=== PATIENT | female | born 1950 | race Caucasian/White ===

== ENCOUNTER 2017-02-27 08:19 | Inpatient (IN) | payer OTHER ==
[~2017-02-27] VITALS: Ht 180.3 cm; Wt 109.8 kg
[~2017-02-27 08:19] MED LIST: ACET325; ACYC800 PO; ALBU.083IS; ALBU90OI; ALBU90OI INH; ALBUIS; AMOX1XR; ASPI325; ATOR40TA PO; Adult Low Dose81 MG PO; CELEXA PO; CEPH500 PO; CETI10; CIPR500 PO; CITA20 PO; DILT180; DIPH25; DOCU100; DOXY100; DOXY100 PO; DULERA 100 MCG/13 GM INH; DULO30; ESCI10; FLUSAL2505; FLUSAL2505 INH; GABA100 PO; ISODIN20 PO; LACT10SY; LANS30EC; LANS30EC PO; METH10; METH10 PO; METHADONE PO; NEBI5 PO; NICO21TP; NITR.4SL SL; OMEP20ER; OXYC15ER PO; OXYC5; Omeprazole20 M1 PO; PENVK500 PO; SERT50; SPIRIVA INHALER; THEO200ERC PO; TIOT18; TIOT18 INH; Valium5 MG PO
[2017-02-27] MEDS ORDERED: ISOMON20 PO (08:51)
[2017-02-27 09:12] LABS: BASOPHILS ABSOLUTE AUTO 0.03 K/mm3 (0.00-0.23); BASOPHILS PERCENT AUTO 0 % (0-2); EOSINOPHILS ABSOLUTE AUTO 0.08 K/mm3 (0.00-0.68); EOSINOPHILS PERCENT AUTO 1 % (0-6); Hematocrit 39.7 % (33.0-51.0); Hemoglobin 12.4 g/dL (11.5-16.0); IMMATURE GRAN ABSOLUTE AUTO 0.04 K/mm3 (0.00-0.10); IMMATURE GRAN PERCENT AUTO 0 % (0-1); LYMPHOCYTES ABSOLUTE AUTO 0.58 K/mm3 (0.84-5.20); LYMPHOCYTES PERCENT AUTO 6 % (21-46); MONOCYTES ABSOLUTE AUTO 0.66 K/mm3 (0.16-1.47); MONOCYTES PERCENT AUTO 7 % (4-13); Mean Corpuscular HGB 28.8 pg (26.0-34.0); Mean Corpuscular HGB Conc 31.2 g/dL (31.5-36.5); Mean Corpuscular Volume 92 fL (80-100); Mean Platelet Volume 9.1 fL (9.1-12.4); NEUTROPHILS ABSOLUTE AUTO 8.42 K/mm3 (1.96-9.15); NEUTROPHILS PERCENT AUTO 86 % (41-73); Platelet Count 256 K/mm3 (150-400); RDW Coefficient Variation 12.5 % (11.7-14.2); RDW Standard Deviation 42.3 fL (35.1-46.3); Red Blood Cell Count 4.31 M/mm3 (3.80-5.20); White Blood Cell Count 9.81 K/mm3 (4.00-11.30)
[2017-02-27 09:31] LABS: Influenza A Positive (NEGATIVE); Influenza B Negative (NEGATIVE)
[2017-02-27 09:33] LABS: Troponin I <0.015 ng/mL (0.000-0.040)
[2017-02-27 09:34] LABS: Alanine Aminotransfer (ALT/SGP 19 U/L (12-78); Albumin/Globulin Ratio 0.7 (0.8-1.8); Alk Phos 105 U/L (50-136); Anion Gap 5 mmol/L (6-16); Aspartate Aminotrans (AST/SGOT 10 U/L (12-37); Bilirubin, Total 0.3 mg/dL (0.1-1.0); Blood Urea Nitrogen 13 mg/dL (8-24); Bun/Creatinine Ratio 17.5 (12.0-20.0); CO2, Blood 31 mmol/L (21-32); Chloride, Blood 103 mmol/L (98-108); Creatinine, Blood 0.74 mg/dL (0.40-1.00); Globulin, Blood 4.4 g/dL (2.2-4.0); Glomerular Filtration Rate >60 (60-); Glucose, Blood 111 mg/dL (70-99); Sodium, Blood 139 mmol/L (136-145); Total Protein, Blood 7.4 g/dL (6.4-8.2)
[2017-02-28 06:00] LABS: Anion Gap 7 mmol/L (6-16); Blood Urea Nitrogen 14 mg/dL (8-24); Bun/Creatinine Ratio 21.9 (12.0-20.0); CO2, Blood 28 mmol/L (21-32); Calcium, Blood 8.6 mg/dL (8.5-10.1); Chloride, Blood 106 mmol/L (98-108); Creatinine, Blood 0.64 mg/dL (0.40-1.00); Glomerular Filtration Rate >60 (60-); Glucose, Blood 146 mg/dL (70-99); Potassium, Blood 3.8 mmol/L (3.5-5.5); Sodium, Blood 141 mmol/L (136-145); Theophylline 9.9 ug/mL (10.0-20.0)
[2017-02-28 06:22] LABS: BASOPHILS PERCENT AUTO 0 % (0-2); EOSINOPHILS PERCENT AUTO 0 % (0-6); Hemoglobin 11.5 g/dL (11.5-16.0); IMMATURE GRAN ABSOLUTE AUTO 0.05 K/mm3 (0.00-0.10); IMMATURE GRAN PERCENT AUTO 1 % (0-1); LYMPHOCYTES ABSOLUTE AUTO 0.48 K/mm3 (0.84-5.20); LYMPHOCYTES PERCENT AUTO 11 % (21-46); MONOCYTES ABSOLUTE AUTO 0.17 K/mm3 (0.16-1.47); MONOCYTES PERCENT AUTO 4 % (4-13); Mean Corpuscular HGB 28.9 pg (26.0-34.0); Mean Corpuscular HGB Conc 31.9 g/dL (31.5-36.5); Mean Corpuscular Volume 91 fL (80-100); Mean Platelet Volume 9.2 fL (9.1-12.4); NEUTROPHILS ABSOLUTE AUTO 3.88 K/mm3 (1.96-9.15); NEUTROPHILS PERCENT AUTO 85 % (41-73); Platelet Count 240 K/mm3 (150-400); RDW Coefficient Variation 12.3 % (11.7-14.2); RDW Standard Deviation 40.5 fL (35.1-46.3); Red Blood Cell Count 3.98 M/mm3 (3.80-5.20); White Blood Cell Count 4.58 K/mm3 (4.00-11.30)
[2017-03-01] MEDS ORDERED: BENZ100A PO (11:10)
[2017-03-01] MEDS ORDERED: CEFU500T30 PO (11:11)
[2017-03-01] MEDS ORDERED: OSEL75CA PO (11:11)
[2017-03-01] MEDS ORDERED: DELTASONE20 MG PO (11:15)
== END 2017-03-01 12:45 | disposition home or self-care (01) | DRG 193 ==
LOC: ER 08:19 → MEDS 10:38 → ENPENDDIS 03-01 09:09 → MEDS 03-01 12:45
PROVIDERS: Emergency Medicine; Internal Medicine
DX: J10.1 Influenza due to other identified influenza virus with other respiratory manifestations (principal); J96.01 Acute respiratory failure with hypoxia; J44.1 Chronic obstructive pulmonary disease with (acute) exacerbation; I20.9 Angina pectoris, unspecified; G89.4 Chronic pain syndrome; I87.8 Other specified disorders of veins; Z85.41 Personal history of malignant neoplasm of cervix uteri; Z85.43 Personal history of malignant neoplasm of ovary; Z85.118 Personal history of other malignant neoplasm of bronchus and lung; Z90.2 Acquired absence of lung [part of]; Z88.2 Allergy status to sulfonamides; Z87.891 Personal history of nicotine dependence; Z79.82 Long term (current) use of aspirin; Z79.899 Other long term (current) drug therapy; Z79.891 Long term (current) use of opiate analgesic; Z99.81 Dependence on supplemental oxygen
CPT/HCPCS: 36415; 71046; 80048; 80053; 80198; 83605; 84145; 84484; 85025; 87040; 87070; 87205; 87804; 93005; 93010; 94640; 94760; 96361; 96374; 99285; J1650; J2543; J2930; J7030

== ENCOUNTER 2017-04-30 14:16 | Emergency (ER) | payer OTHER ==
[~2017-04-30] VITALS: Ht 182.9 cm; Wt 110.7 kg
[~2017-04-30 14:16] MED LIST changes: +BENZ100A PO; +CEFU500T30 PO; +DELTASONE20 MG PO; +ISOMON20 PO; +OSEL75CA PO
[2017-04-30 14:46] LABS: BASOPHILS ABSOLUTE AUTO 0.03 K/mm3 (0.00-0.23); BASOPHILS PERCENT AUTO 0 % (0-2); EOSINOPHILS PERCENT AUTO 0 % (0-6); Hemoglobin 13.1 g/dL (11.5-16.0); IMMATURE GRAN PERCENT AUTO 1 % (0-1); LYMPHOCYTES ABSOLUTE AUTO 0.86 K/mm3 (0.84-5.20); LYMPHOCYTES PERCENT AUTO 9 % (21-46); MONOCYTES ABSOLUTE AUTO 0.27 K/mm3 (0.16-1.47); MONOCYTES PERCENT AUTO 3 % (4-13); Mean Corpuscular HGB 29.1 pg (26.0-34.0); Mean Corpuscular HGB Conc 31.2 g/dL (31.5-36.5); Mean Corpuscular Volume 93 fL (80-100); Mean Platelet Volume 9.1 fL (9.1-12.4); NEUTROPHILS ABSOLUTE AUTO 8.34 K/mm3 (1.96-9.15); NEUTROPHILS PERCENT AUTO 87 % (41-73); Platelet Count 251 K/mm3 (150-400); RDW Coefficient Variation 13.4 % (11.7-14.2); RDW Standard Deviation 45.9 fL (35.1-46.3)
[2017-04-30 15:08] LABS: Alanine Aminotransfer (ALT/SGP 23 U/L (12-78); Albumin/Globulin Ratio 0.8 (0.8-1.8); Alk Phos 78 U/L (50-136); Anion Gap 6 mmol/L (6-16); Aspartate Aminotrans (AST/SGOT 9 U/L (12-37); Bilirubin, Total 0.4 mg/dL (0.1-1.0); Blood Urea Nitrogen 19 mg/dL (8-24); Bun/Creatinine Ratio 27.4 (12.0-20.0); CO2, Blood 28 mmol/L (21-32); Calcium, Blood 8.9 mg/dL (8.5-10.1); Chloride, Blood 102 mmol/L (98-108); Creatinine, Blood 0.69 mg/dL (0.40-1.00); Glomerular Filtration Rate >60 (60-); Glucose, Blood 224 mg/dL (70-99); Potassium, Blood 4.1 mmol/L (3.5-5.5); Sodium, Blood 136 mmol/L (136-145); Troponin I <0.015 ng/mL (0.000-0.040)
== END 2017-04-30 17:03 | disposition home or self-care (01) ==
LOC: ER 14:16
PROVIDERS: Emergency Medicine
DX: R07.9 Chest pain, unspecified (principal); J44.9 Chronic obstructive pulmonary disease, unspecified; Z88.2 Allergy status to sulfonamides; Z88.1 Allergy status to other antibiotic agents; Z79.899 Other long term (current) drug therapy; Z79.51 Long term (current) use of inhaled steroids; Z79.82 Long term (current) use of aspirin; Z79.52 Long term (current) use of systemic steroids; Z87.891 Personal history of nicotine dependence
CPT/HCPCS: 36415; 71046; 80053; 84484; 85025; 93005; 93010; 99283

== ENCOUNTER 2017-09-19 09:16 | Emergency (ER) | payer OTHER ==
[~2017-09-19] VITALS: Ht 180.3 cm; Wt 112.5 kg
[2017-09-19 10:10] LABS: BASOPHILS ABSOLUTE AUTO 0.08 K/mm3 (0.00-0.23); BASOPHILS PERCENT AUTO 1 % (0-2); EOSINOPHILS ABSOLUTE AUTO 0.25 K/mm3 (0.00-0.68); EOSINOPHILS PERCENT AUTO 3 % (0-6); Hematocrit 37.9 % (33.0-51.0); IMMATURE GRAN ABSOLUTE AUTO 0.03 K/mm3 (0.00-0.10); IMMATURE GRAN PERCENT AUTO 0 % (0-1); LYMPHOCYTES ABSOLUTE AUTO 2.34 K/mm3 (0.84-5.20); LYMPHOCYTES PERCENT AUTO 26 % (21-46); MONOCYTES ABSOLUTE AUTO 0.94 K/mm3 (0.16-1.47); MONOCYTES PERCENT AUTO 11 % (4-13); Mean Corpuscular HGB 29.3 pg (26.0-34.0); Mean Corpuscular HGB Conc 31.7 g/dL (31.5-36.5); Mean Corpuscular Volume 93 fL (80-100); Mean Platelet Volume 9.7 fL (9.1-12.4); NEUTROPHILS ABSOLUTE AUTO 5.32 K/mm3 (1.96-9.15); NEUTROPHILS PERCENT AUTO 59 % (41-73); Platelet Count 255 K/mm3 (150-400); RDW Coefficient Variation 12.6 % (11.7-14.2); RDW Standard Deviation 42.7 fL (35.1-46.3); Red Blood Cell Count 4.09 M/mm3 (3.80-5.20); White Blood Cell Count 8.96 K/mm3 (4.00-11.30)
[2017-09-19 10:32] LABS: Alanine Aminotransfer (ALT/SGP 56 U/L (12-78); Albumin, Blood 3.1 g/dL (3.4-5.0); Albumin/Globulin Ratio 0.8 (0.8-1.8); Alk Phos 111 U/L (50-136); Anion Gap 6 mmol/L (6-16); Aspartate Aminotrans (AST/SGOT 36 U/L (12-37); Bilirubin, Total 0.5 mg/dL (0.1-1.0); Blood Urea Nitrogen 19 mg/dL (8-24); Bun/Creatinine Ratio 27.6 (12.0-20.0); CO2, Blood 33 mmol/L (21-32); Calcium, Blood 8.3 mg/dL (8.5-10.1); Chloride, Blood 104 mmol/L (98-108); Creatinine, Blood 0.69 mg/dL (0.40-1.00); Glomerular Filtration Rate >60 (60-); Glucose, Blood 83 mg/dL (70-99); Sodium, Blood 143 mmol/L (136-145); Total Protein, Blood 7.1 g/dL (6.4-8.2)
== END 2017-09-19 13:11 | disposition home or self-care (01) ==
LOC: ER 09:16
DX: L03.116 Cellulitis of left lower limb (principal); J44.9 Chronic obstructive pulmonary disease, unspecified; Z87.891 Personal history of nicotine dependence
CPT/HCPCS: 36415; 73600; 73620; 80053; 85025; 93971; 96365; 99284-25; J3370; J7050

== ENCOUNTER 2017-09-20 14:20 | Day surgery (SDC) | payer OTHER ==
[~2017-09-20] VITALS: Ht 180.3 cm; Wt 112.5 kg
== END 2017-09-20 17:40 | disposition home or self-care (01) ==
LOC: ATC 14:20
DX: L03.116 Cellulitis of left lower limb (principal); Z87.891 Personal history of nicotine dependence
CPT/HCPCS: 96365; 96366; J3370; J7050

== ENCOUNTER 2017-09-21 07:56 | Day surgery (SDC) | payer OTHER | END 2017-09-21 17:55 | disposition home or self-care (01) | LOC: ATC 07:56 | DX: L03.116 Cellulitis of left lower limb (principal); Z87.891 Personal history of nicotine dependence | CPT/HCPCS: 96365; J3370; J7050 ==

== ENCOUNTER 2017-09-23 08:55 | Day surgery (SDC) | payer OTHER | END 2017-09-23 10:56 | disposition home or self-care (01) | LOC: ATC 08:55 | DX: L03.116 Cellulitis of left lower limb (principal); Z87.891 Personal history of nicotine dependence | CPT/HCPCS: 96365; 96366 ==

== ENCOUNTER → 2017-10-04 | Outpatient (CLI) | payer OTHER ==
[2017-10-04 14:08] LABS: Source, Urine Clean Catch
[2017-10-04 16:38] LABS: Appearance, Urine Clear (Clear); Bilirubin, Urine Neg (Neg); Blood, Urine 1+ (Neg); Color, Urine Yellow (P-Yellow); Glucose Qualitative, Urine Neg (Neg); Ketones, Urine Neg (Neg); Leukocyte Esterase, Urine Neg (Neg); Nitrite, Urine Neg (Neg); Protein, Urine Neg (Neg); Urobilinogen, Urine NORM (Normal)
[2017-10-04 16:46] LABS: Bacteria Few /hpf; Mucus Mod (0-Heavy); Red Blood Cells, Urine 0-2 /hpf (0-2); Squamous Epithelial Cells Few /hpf (Few); White Blood Cells, Urine 0-2 /hpf (0-5)
== END ==
LOC: LAB SHORT 13:30 → LAB 13:30
PROVIDERS: Family Medicine
DX: R35.0 Frequency of micturition (principal)
CPT/HCPCS: 81001

== ENCOUNTER 2018-04-07 16:28 | Emergency (ER) | payer OTHER ==
[~2018-04-07] VITALS: Ht 177.8 cm; Wt 112.5 kg
[2018-04-07 17:19] LABS: BASOPHILS ABSOLUTE AUTO 0.05 K/mm3 (0.00-0.23); BASOPHILS PERCENT AUTO 1 % (0-2); EOSINOPHILS ABSOLUTE AUTO 0.16 K/mm3 (0.00-0.68); EOSINOPHILS PERCENT AUTO 2 % (0-6); Hematocrit 37.6 % (33.0-51.0); Hemoglobin 11.6 g/dL (11.5-16.0); IMMATURE GRAN ABSOLUTE AUTO 0.03 K/mm3 (0.00-0.10); IMMATURE GRAN PERCENT AUTO 0 % (0-1); LYMPHOCYTES ABSOLUTE AUTO 1.56 K/mm3 (0.84-5.20); LYMPHOCYTES PERCENT AUTO 21 % (21-46); MONOCYTES ABSOLUTE AUTO 0.61 K/mm3 (0.16-1.47); MONOCYTES PERCENT AUTO 8 % (4-13); Mean Corpuscular HGB 29.4 pg (26.0-34.0); Mean Corpuscular HGB Conc 30.9 g/dL (31.5-36.5); Mean Corpuscular Volume 95 fL (80-100); Mean Platelet Volume 9.5 fL (9.1-12.4); NEUTROPHILS PERCENT AUTO 67 % (41-73); Platelet Count 254 K/mm3 (150-400); RDW Coefficient Variation 12.3 % (11.7-14.2); Red Blood Cell Count 3.95 M/mm3 (3.80-5.20); White Blood Cell Count 7.41 K/mm3 (4.00-11.30)
[2018-04-07 17:44] LABS: Alanine Aminotransfer (ALT/SGP 14 U/L (12-78); Albumin, Blood 2.7 g/dL (3.4-5.0); Albumin/Globulin Ratio 0.6 (0.8-1.8); Alk Phos 120 U/L (50-136); Anion Gap 6 mmol/L (6-16); Aspartate Aminotrans (AST/SGOT 12 U/L (12-37); Bilirubin, Total 0.3 mg/dL (0.1-1.0); Blood Urea Nitrogen 9 mg/dL (8-24); Bun/Creatinine Ratio 15.4 (12.0-20.0); CO2, Blood 31 mmol/L (21-32); Calcium, Blood 8.2 mg/dL (8.5-10.1); Chloride, Blood 103 mmol/L (98-108); Creatinine, Blood 0.59 mg/dL (0.40-1.00); Globulin, Blood 4.3 g/dL (2.2-4.0); Glomerular Filtration Rate >60 (60-); Glucose, Blood 106 mg/dL (70-99); Potassium, Blood 3.6 mmol/L (3.5-5.5); Sodium, Blood 140 mmol/L (136-145)
== END 2018-04-07 20:00 | disposition home or self-care (01) ==
LOC: ER 16:28
PROVIDERS: Physician Assistant
DX: J44.9 Chronic obstructive pulmonary disease, unspecified (principal); Z99.81 Dependence on supplemental oxygen; Z85.118 Personal history of other malignant neoplasm of bronchus and lung; Z87.891 Personal history of nicotine dependence; Z88.1 Allergy status to other antibiotic agents; Z88.2 Allergy status to sulfonamides; Z79.899 Other long term (current) drug therapy; Z79.82 Long term (current) use of aspirin
CPT/HCPCS: 36415; 71046; 80053; 85025; 93005; 93010; 99283-25

== ENCOUNTER 2018-09-15 13:23 | Emergency (ER) | payer OTHER ==
[~2018-09-15] VITALS: Ht 177.8 cm; Wt 111.6 kg
[2018-09-15] MEDS ORDERED: MONDOXYNE NL100 MG PO (13:50)
== END 2018-09-15 13:55 | disposition home or self-care (01) ==
LOC: ER 13:23
DX: K13.79 Other lesions of oral mucosa (principal); Z88.1 Allergy status to other antibiotic agents; Z88.2 Allergy status to sulfonamides; Z79.899 Other long term (current) drug therapy; Z79.82 Long term (current) use of aspirin; J44.9 Chronic obstructive pulmonary disease, unspecified; Z87.891 Personal history of nicotine dependence
CPT/HCPCS: 99282

== ENCOUNTER 2018-11-20 03:02 | Emergency (ER) | payer OTHER ==
[~2018-11-20] VITALS: Ht 180.3 cm; Wt 113.4 kg
[~2018-11-20 03:02] MED LIST changes: +MONDOXYNE NL100 MG PO
[2018-11-20] MEDS ORDERED: ROFL500T PO (03:18)
[2018-11-20 03:58] LABS: BASOPHILS ABSOLUTE AUTO 0.06 K/mm3 (0.00-0.23); BASOPHILS PERCENT AUTO 1 % (0-2); EOSINOPHILS ABSOLUTE AUTO 0.16 K/mm3 (0.00-0.68); EOSINOPHILS PERCENT AUTO 2 % (0-6); Hematocrit 36.3 % (33.0-51.0); Hemoglobin 11.3 g/dL (11.5-16.0); IMMATURE GRAN ABSOLUTE AUTO 0.02 K/mm3 (0.00-0.10); IMMATURE GRAN PERCENT AUTO 0 % (0-1); LYMPHOCYTES ABSOLUTE AUTO 1.34 K/mm3 (0.84-5.20); LYMPHOCYTES PERCENT AUTO 15 % (21-46); MONOCYTES ABSOLUTE AUTO 0.81 K/mm3 (0.16-1.47); MONOCYTES PERCENT AUTO 9 % (4-13); Mean Corpuscular HGB 29.5 pg (26.0-34.0); Mean Corpuscular HGB Conc 31.1 g/dL (31.5-36.5); Mean Corpuscular Volume 95 fL (80-100); Mean Platelet Volume 9.7 fL (9.1-12.4); NEUTROPHILS ABSOLUTE AUTO 6.78 K/mm3 (1.96-9.15); NEUTROPHILS PERCENT AUTO 74 % (41-73); Platelet Count 232 K/mm3 (150-400); RDW Coefficient Variation 12.4 % (11.7-14.2); RDW Standard Deviation 43.4 fL (35.1-46.3); Red Blood Cell Count 3.83 M/mm3 (3.80-5.20); White Blood Cell Count 9.17 K/mm3 (4.00-11.30)
[2018-11-20 04:17] LABS: Alanine Aminotransfer (ALT/SGP 27 U/L (12-78); Albumin, Blood 3.1 g/dL (3.4-5.0); Albumin/Globulin Ratio 0.8 (0.8-1.8); Alk Phos 297 U/L (50-136); Anion Gap 5 mmol/L (6-16); Aspartate Aminotrans (AST/SGOT 54 U/L (12-37); Bilirubin, Total 0.5 mg/dL (0.1-1.0); Blood Urea Nitrogen 10 mg/dL (8-24); Bun/Creatinine Ratio 14.8 (12.0-20.0); CO2, Blood 31 mmol/L (21-32); Calcium, Blood 8.4 mg/dL (8.5-10.1); Chloride, Blood 106 mmol/L (98-108); Creatinine, Blood 0.67 mg/dL (0.40-1.00); Glomerular Filtration Rate >60 (60-); Glucose, Blood 118 mg/dL (70-99); Potassium, Blood 3.8 mmol/L (3.5-5.5); Sodium, Blood 142 mmol/L (136-145); Total Protein, Blood 7.1 g/dL (6.4-8.2); Troponin I <0.015 ng/mL (0.000-0.040)
== END 2018-11-20 04:47 | disposition home or self-care (01) ==
LOC: ER 03:02
PROVIDERS: Emergency Medicine
DX: R07.9 Chest pain, unspecified (principal); J44.9 Chronic obstructive pulmonary disease, unspecified; Z85.118 Personal history of other malignant neoplasm of bronchus and lung; Z87.891 Personal history of nicotine dependence; Z88.1 Allergy status to other antibiotic agents; Z88.2 Allergy status to sulfonamides; Z79.899 Other long term (current) drug therapy; Z79.891 Long term (current) use of opiate analgesic; Z79.82 Long term (current) use of aspirin
CPT/HCPCS: 71046; 80053; 84484; 85025; 93005; 93010; 99285-25

== ENCOUNTER 2020-03-17 21:23 | Inpatient (IN) | payer OTHER ==
[~2020-03-17] VITALS: Ht 180.3 cm; Wt 101.7 kg
[~2020-03-17 21:23] MED LIST changes: +ROFL500T PO
[2020-03-17 22:05] LABS: Source, Urine Catheter
[2020-03-17 22:08] LABS: BASOPHILS ABSOLUTE AUTO 0.07 K/mm3 (0.00-0.23); BASOPHILS PERCENT AUTO 1 % (0-2); EOSINOPHILS ABSOLUTE AUTO 0.06 K/mm3 (0.00-0.68); EOSINOPHILS PERCENT AUTO 1 % (0-6); Hemoglobin 11.6 g/dL (11.5-16.0); IMMATURE GRAN ABSOLUTE AUTO 0.04 K/mm3 (0.00-0.10); IMMATURE GRAN PERCENT AUTO 0 % (0-1); LYMPHOCYTES ABSOLUTE AUTO 1.16 K/mm3 (0.84-5.20); LYMPHOCYTES PERCENT AUTO 13 % (21-46); MONOCYTES ABSOLUTE AUTO 0.91 K/mm3 (0.16-1.47); MONOCYTES PERCENT AUTO 10 % (4-13); Mean Corpuscular HGB 29.5 pg (26.0-34.0); Mean Corpuscular HGB Conc 30.5 g/dL (31.5-36.5); Mean Corpuscular Volume 97 fL (80-100); Mean Platelet Volume 9.4 fL (9.1-12.4); NEUTROPHILS ABSOLUTE AUTO 7.07 K/mm3 (1.96-9.15); NEUTROPHILS PERCENT AUTO 76 % (41-73); Platelet Count 347 K/mm3 (150-400); RDW Coefficient Variation 13.2 % (11.7-14.2); RDW Standard Deviation 46.6 fL (35.1-46.3); Red Blood Cell Count 3.93 M/mm3 (3.80-5.20); White Blood Cell Count 9.31 K/mm3 (4.00-11.30)
[2020-03-17 22:08] LABS: Bilirubin, Urine Neg (Neg); Blood, Urine 1+ (Neg); Glucose Qualitative, Urine Neg (Neg); Ketones, Urine Neg (Neg); Leukocyte Esterase, Urine Neg (Neg); Nitrite, Urine Neg (Neg); Protein, Urine Neg (Neg); Urobilinogen, Urine NORM (Normal)
[2020-03-17 22:13] LABS: Color, Urine Yellow (P-Yellow)
[2020-03-17 22:23] LABS: Appearance, Urine Clear (Clear)
[2020-03-17] MEDS ORDERED: FLUT1DIS8 INH (22:23)
[2020-03-17] MEDS ORDERED: NITR100CA PO (22:24)
[2020-03-17 22:25] LABS: Bacteria Not Seen /hpf; Red Blood Cells, Urine 0-2 /hpf (0-2); Squamous Epithelial Cells Not Seen /hpf (Few); White Blood Cells, Urine Not Seen /hpf (0-5)
[2020-03-17 22:26] LABS: Alanine Aminotransfer (ALT/SGP 31 U/L (12-78); Albumin, Blood 2.7 g/dL (3.4-5.0); Albumin/Globulin Ratio 0.7 (0.8-1.8); Alk Phos 105 U/L (50-136); Anion Gap 6 mmol/L (6-16); Aspartate Aminotrans (AST/SGOT 21 U/L (12-37); Bilirubin, Total 0.4 mg/dL (0.1-1.0); Blood Urea Nitrogen 6 mg/dL (8-24); Bun/Creatinine Ratio 12.7 (12.0-20.0); CO2, Blood 37 mmol/L (21-32); Calcium, Blood 8.8 mg/dL (8.5-10.1); Chloride, Blood 97 mmol/L (98-108); Creatinine, Blood 0.47 mg/dL (0.40-1.00); Glomerular Filtration Rate >60 (60-); Glucose, Blood 120 mg/dL (70-99); Potassium, Blood 2.8 mmol/L (3.5-5.5); Sodium, Blood 140 mmol/L (136-145); Total Protein, Blood 6.7 g/dL (6.4-8.2)
[2020-03-18 01:00] LABS: Calcium, Ionized (POC) 1.09 mmol/L (1.10-1.46); Chloride (POC) 94 mmol/L (98-108); Creatinine (POC) 0.5 mg/dL (0.6-1.0); Glucose (ISTAT POC) 114 mg/dL (70-99); Hemoglobin (POC) 12.6 g/dL (12.0-16.0); Potassium (POC) 4.1 mmol/L (3.5-5.5); Sodium (POC) 136 mmol/L (135-148); Total CO2 (POC) 35 mmol/L (21-32)
[2020-03-18 01:20] LABS: Base Excess Venous 11.4 mmol/L; PCO2 Venous 43.3 mmHg (38-42); PO2 Venous 67.4 mmHg (38-42); pH Blood Venous 7.51 (7.34-7.37)
[2020-03-18] MEDS ORDERED: Isosorbide Mono30 MG PO (04:20)
[2020-03-18 04:39] LABS: BASOPHILS ABSOLUTE AUTO 0.04 K/mm3 (0.00-0.23); BASOPHILS PERCENT AUTO 0 % (0-2); EOSINOPHILS ABSOLUTE AUTO 0.01 K/mm3 (0.00-0.68); EOSINOPHILS PERCENT AUTO 0 % (0-6); Hematocrit 38.2 % (33.0-51.0); Hemoglobin 11.6 g/dL (11.5-16.0); IMMATURE GRAN ABSOLUTE AUTO 0.04 K/mm3 (0.00-0.10); IMMATURE GRAN PERCENT AUTO 0 % (0-1); LYMPHOCYTES PERCENT AUTO 4 % (21-46); MONOCYTES PERCENT AUTO 2 % (4-13); Mean Corpuscular HGB 29.2 pg (26.0-34.0); Mean Corpuscular HGB Conc 30.4 g/dL (31.5-36.5); Mean Corpuscular Volume 96 fL (80-100); Mean Platelet Volume 9.6 fL (9.1-12.4); NEUTROPHILS ABSOLUTE AUTO 9.65 K/mm3 (1.96-9.15); NEUTROPHILS PERCENT AUTO 93 % (41-73); Platelet Count 322 K/mm3 (150-400); RDW Coefficient Variation 13.2 % (11.7-14.2); RDW Standard Deviation 46.9 fL (35.1-46.3); Red Blood Cell Count 3.97 M/mm3 (3.80-5.20); White Blood Cell Count 10.34 K/mm3 (4.00-11.30)
[2020-03-18] MEDS ORDERED: OXYCODONE HCL E PO (04:39)
[2020-03-18 05:03] LABS: Albumin, Blood 2.7 g/dL (3.4-5.0); Anion Gap 5 mmol/L (6-16); Blood Urea Nitrogen 6 mg/dL (8-24); Bun/Creatinine Ratio 13.2 (12.0-20.0); CO2, Blood 33 mmol/L (21-32); Calcium, Blood 8.6 mg/dL (8.5-10.1); Chloride, Blood 99 mmol/L (98-108); Creatinine, Blood 0.45 mg/dL (0.40-1.00); Glomerular Filtration Rate >60 (60-); Glucose, Blood 138 mg/dL (70-99); Phosphorus, Blood 2.3 mg/dL (2.5-4.9); Potassium, Blood 3.7 mmol/L (3.5-5.5); Sodium, Blood 137 mmol/L (136-145)
[2020-03-18 06:19] LABS: Base Excess Venous 9.9 mmol/L; Bicarbonate Venous 33.4 mmol/L (24.0-30.0); PCO2 Venous 31.5 mmHg (38-42); PO2 Venous 108 mmHg (38-42); pH Blood Venous 7.61 (7.34-7.37)
--- NOTE | 2020-03-18 07:15 | NUR ---
SHIFT SUMMARY NEW ADMIT THIS AM. AAOX4/ANXIOUS. SOB NOTED UPON ADMISSION, DECREASED WITH BREATHING TX + CONVERSATION TO DECREASE ANXIETY. LUNG SOUNDS DIMINISHED + TIGHT T/O. pH WITH AM VBG NOTED, DR BELL NOTIFIED. PT CURRENTLY RESTING IN ROOM ON 3L VIA NC. ORIENTED TO ROOM + CALL LIGHT USE. UP TO BEDPAN. AWAITING PT TO BECOME LESS SOB TO TOLERATE CT. REPORT TO DAY SHIFT RN.
--- NOTE | 2020-03-18 17:58 | NUR ---
PT ANXIUS AT TIMES, CALMS WHEN REMINDED TO USE PURSED LIP BREATHING. LUNGS DIMINISHED, NO AUDIBLE WHEEZING. PT WITH FREQUENT REQUESTS FOR PAIN MEDICINE, ANXIETY MEDICATION AND RESCUE INHALER. PT INCONTINENT OF URINE, STATES SHE IS TO SOB TO GET OOB.
--- NOTE | 2020-03-19 05:27 | NUR ---
SHIFT SUMMARY S/P COPD EXACERBATION W/ ELEVATED ANXIETY, ALERT, ORIENTED TO SELF/SITUATION BUT FORGETFUL. TOLERATING PO, PASSING FLATUS, INCONTINENT, 3L O2 @ BL, NO ACUTE EVENTS THIS SHIFT, PAIN CONTROLLED PER EMAR. CALL LIGHT IN REACH, WILL CONTINUE TO MONITOR AND REPORT TO ONCOMING DAY RN.
[2020-03-19] MEDS ORDERED: BUSP5 PO (13:31)
[2020-03-19] MEDS ORDERED: PRED20 PO (13:31)
--- NOTE | 2020-03-19 17:29 | NUR ---
SUMMARY: NO ACUTE CHANGE TODAY. PT FORGETFUL AT TIMES AND NEEDED REOREINTATION. VSS, USING CALL LIGHT. PT VERY ANXIOUS WHEN UP TO COMMODE, HAS A HARD TIME FOLLOWING COMMANDS WHILE MOVING AND IS SOB WITH EXERTION.. PT CONINTUES ON 4L NC, SPO2 STABLE. PT DENIES SOB AT REST. PT MEDICATED PER EMAR FOR PAIN, NO ACUTE SAFETY CONCERNS AT THIS TIME.
--- NOTE | 2020-03-19 17:33 | NUR ---
SPOKE WITH PT'S GRANDSON, CANDELARIA AT ABOUT 1530 CONCERNING PLAN OF CARE , HE WAS VERY CONCERNED THAT TODAY WOULD BE TOO SOON FOR PT TO GO HOME DUE TO FAMILY SOCIAL ISSUES WHERE THE PT LIVES AND HER SAFETY. PLAN AT THIS TIME IS DC TOMORROW. DR. URIAS MADE AWARE OF THE CONVERSATION, WILL REPORT TO NOC RN WELL.
--- NOTE | 2020-03-19 18:54 | NUR ---
SUMMARY: NO ACUTE CHANGE SINCE POST OP. VSS, PT STILL DROWSY AWAKENS TO VOICE. HAS DENIED PAIN, ABLE TO TAKE SIPS OF WATER. SURGICAL SITE WNL. PT RESTING QUIETLY AT THIS TIME, BED ALARM ON, CALL LIGHT IN REACH. WILL REPORT TO NOC RN
--- NOTE | 2020-03-20 06:43 | NUR ---
SUMMARY PT CONTINUES FORGETFUL WITH SLIGHT CONFUSION ABOUT SURROUNDINGS. MOVES WELL IN BED WITH MINIMAL ASSIST.REPORTED BREATHING CONTINUES TO IMPROVE PT HOPING TO BE DISCHARGED SOON.
--- NOTE | 2020-03-20 13:06 | NUR ---
PT ENCOURAGED TO GET OOB AND AMBULATE. PT DECLINED AND REPORTED SHE WANTED TO NAP FIRST. DISCUSSED WITH PT THAT SHE COULD NAP FOR 45 MINUTES THEN PLAN TO GET OOB.
--- NOTE | 2020-03-20 13:08 | NUR ---
MESSAGE LEFT WITH PT'S DAUGHTER REQUESTING A CALL BACK. WILL NOTIFY PT'S DAUGHTER OF PLAN FOR DISCHARGE TODAY.
--- NOTE | 2020-03-20 13:09 | NUR ---
PLAN FOR DISCHARGE PT NOTIFIED OF PLAN FOR DISCHARGE AFTER SHE HAS A BOWEL MOVEMENT AND GETS OOB. PT STATED THAT HER HOME IS NOT READY FOR HER. UPON FURTHER QUESTIONING PT REPORTED THAT SHE HAS ALL HER EQUIPMENT AT HOME BUT CONCEDED THAT HER HOME WAS PREPARED BUT SHE WANTED TO REMAIN ANOTHER DAY IN THE HOSPITAL FOR ADDITIONAL REST.
--- NOTE | 2020-03-20 13:28 | NUR ---
PT COMPLAINING OF A HEADACHE AND REQUESTING ADDITIONAL PAIN MEDICATION. DISCUSSED WITH PT THAT SHE WILL NEED TO GET UP AND WALK IN APPROXIMATELY 20 MINUTES. PT REPORTED HER LEGS ARE TO WEAK TO GET UP AND WALK AT THIS TIME. DR. GLASS NOTIFIED THAT PT REQUESTED ADVIL FOR HEADACHE. SHE WAS ALSO NOTIFIED THAT PT IS COMPLAINING OF NEW RIGHT ARM NUMBNESS, PT'S OFFICE MACHINE SERVICER ARE EQUAL AND NEURO WNL. AT THIS TIME DR. GLASS RECOMMENDED COOL COMPRESS FOR PAIN RELIEF. SHE WAS ALSO NOTIFIED THAT PT CONTINUES TO DECLINE TO GET OOB.
--- NOTE | 2020-03-20 14:43 | NUR ---
PT GOT OOB WITH ASSISTANCE TO THE BEDSIDE COMMODE. PT REQUIRED 2 PERSON ASSIST TO THE BEDSIDE COMMODE. PT IS UNSTEADY ON HER FEET. SHE BECOMES VERY ANXIOUS/PANICKED THAT SHE WILL FALL. PT TOOK APPROXIMATELY 10 MINUTES TO CATCH HER BREATH AFTER GETTING BACK TO BED FROM THE COMMODE. PT REPORTS SHE CAN WALK AROUND HER HOUSE AT BASELINE BUT USES A WHEELCHAIR WHEN IN TOWN.
--- NOTE | 2020-03-20 17:02 | NUR ---
PT WORKED WITH THERAPY, SHE IS A MIN TO MOD 1-2 PERSON ASSIST. PT IS ALSO COUGHING UP THICK SPUTUM. PLAN FOR PT TO REMAIN IN HOSPITAL OVERNIGHT FOR ADDITIONAL THERAPY. SPUTUM SAMPLE SENT TO LAB.
--- NOTE | 2020-03-20 18:46 | NUR ---
SHIFT SUMMARY PT CONTINUES TO HAVE SHORTNESS OF BREATH WITH MINIMAL ACTIVITY. PT WAS ABLE TO GET OOB SHE WAS A 2 PERSON MODERATE ASSIST TO STAND AND TRANSFER TO THE BEDSIDE COMMODE. SHE WORKED WITH THERAPY BUT DECLINED TO AMBULATE WITH THE PHYSICAL THERAPIST. PT WAS UNSTEADY ON HER FEET WITH TRANSFERS. PT ALSO BECOMES VERY ANXIOUS UPON STANDING. PT IS COUGHING UP THICK GREEN SPUTUM, SPUTUM SAMPLE SENT. VSS. WILL MONITOR UNTIL REPORT TO ONCOMING RN.
[2020-03-21 04:14] LABS: BASOPHILS ABSOLUTE AUTO 0.06 K/mm3 (0.00-0.23); BASOPHILS PERCENT AUTO 1 % (0-2); EOSINOPHILS ABSOLUTE AUTO 0.08 K/mm3 (0.00-0.68); EOSINOPHILS PERCENT AUTO 1 % (0-6); Hematocrit 34.7 % (33.0-51.0); Hemoglobin 10.7 g/dL (11.5-16.0); IMMATURE GRAN ABSOLUTE AUTO 0.04 K/mm3 (0.00-0.10); IMMATURE GRAN PERCENT AUTO 0 % (0-1); LYMPHOCYTES ABSOLUTE AUTO 2.32 K/mm3 (0.84-5.20); LYMPHOCYTES PERCENT AUTO 20 % (21-46); MONOCYTES ABSOLUTE AUTO 1.45 K/mm3 (0.16-1.47); MONOCYTES PERCENT AUTO 13 % (4-13); Mean Corpuscular HGB 29.6 pg (26.0-34.0); Mean Corpuscular HGB Conc 30.8 g/dL (31.5-36.5); Mean Corpuscular Volume 96 fL (80-100); Mean Platelet Volume 9.2 fL (9.1-12.4); NEUTROPHILS ABSOLUTE AUTO 7.55 K/mm3 (1.96-9.15); NEUTROPHILS PERCENT AUTO 66 % (41-73); Platelet Count 369 K/mm3 (150-400); RDW Coefficient Variation 13.3 % (11.7-14.2); RDW Standard Deviation 47.3 fL (35.1-46.3); Red Blood Cell Count 3.62 M/mm3 (3.80-5.20)
[2020-03-21 04:38] LABS: Anion Gap 5 mmol/L (6-16); Blood Urea Nitrogen 17 mg/dL (8-24); Bun/Creatinine Ratio 28.7 (12.0-20.0); CO2, Blood 33 mmol/L (21-32); Calcium, Blood 8.7 mg/dL (8.5-10.1); Chloride, Blood 100 mmol/L (98-108); Creatinine, Blood 0.59 mg/dL (0.40-1.00); Glomerular Filtration Rate >60 (60-); Glucose, Blood 108 mg/dL (70-99); Sodium, Blood 138 mmol/L (136-145)
--- NOTE | 2020-03-21 07:41 | NUR ---
SUMMARY PT NOT ABLE TO AMBULATE LAST NIGHT. ATTEMPTED TO GO TO [facility] WITH 2 STAFF AND WITH STAFF LIFTING ON GAIT BELT, PT LIFTING REAR FEW INCHES OF MATTRESS, THEN STATING SHE COULD NOT DO IT AND SAT HER REAR BACK DOWN.USED BEDPAN.
--- NOTE | 2020-03-21 13:57 | NUR ---
TELE MONITOR MAINE CALLED TO SAY PT IN SINUS TACH 105
[2020-03-21 14:21] LABS: Influenza A, PCR NEGATIVE (NEGATIVE); Influenza B, PCR NEGATIVE (NEGATIVE); Resp Syncytial Virus, PCR NEGATIVE (NEGATIVE); SARS-Cov-2 (COVID-19) PCR, MMC NEGATIVE (NEGATIVE)
--- NOTE | 2020-03-21 15:53 | NUR ---
SHIFT SUMMARY PT A&OX2-3 FORGETFUL, ANXIOUS, TELE SINUS TACH 105. COPD EXAC 4-5L NC, SOB W/EXERTION, UNABLE TO LAY FLAT, TCDB & I.S. EDU & ENC, FLUTTER VALVE TO ENCOURAGE COUGH/SPUTUM. REPOSITIONS SELF WELL IN BED, UNABLE TO STAND PIVOT TRANSFER SAYS "LEGS ARE GOING DOWN." INCONTINENT, ATTENDS ON, VOIDING WELL. PAIN MANAGED WITH METHADONE BID, OXY Q6 PRN, TYLENOL PRN. KORY CARDIAC DIET, DENIES N&V. WILL REPORT TO NEXT RN.
--- NOTE | 2020-03-21 21:26 | NUR ---
JUST GAVE REPORT TO DAMIAN EDEN FROM MEDICAL FLOOR. WILL BE GATHERING HER ITEMS AND MOVING HER TO HER NEW ROOM ON MEDICAL FLOOR SHORTLY.
--- NOTE | 2020-03-21 23:18 | NUR ---
03/21/202129 Pt was transferred from 213 to [facility] via bed. O2 at 3.5 L. Pt is alert and oriented x3 at this time. Pt main complaint is upper epigastric pain bubble. Pt states often gets them at home. 2229 Order received for simithecone 80 mg which was effective a few minutes later. Pt states she feels like she is at her respiratory baseline. Breath sounds are diminished and she has very fine expiratory wheezing thoughout. Pt attends are dry at this time. Call light in reach.
--- NOTE | 2020-03-22 06:04 | NUR ---
Rn summary: Patient remains alert and oriented and at her baseline for respiratory effort. Pt sating 97% on 3.5 liters, will decrease to 3L. Pt denies pain at this time. No coughing noted. Call light remains in reach. Will continue to moniotr.
[2020-03-22 06:30] LABS: BASOPHILS ABSOLUTE AUTO 0.05 K/mm3 (0.00-0.23); BASOPHILS PERCENT AUTO 1 % (0-2); EOSINOPHILS ABSOLUTE AUTO 0.15 K/mm3 (0.00-0.68); EOSINOPHILS PERCENT AUTO 2 % (0-6); Hematocrit 36.5 % (33.0-51.0); IMMATURE GRAN ABSOLUTE AUTO 0.04 K/mm3 (0.00-0.10); IMMATURE GRAN PERCENT AUTO 0 % (0-1); LYMPHOCYTES ABSOLUTE AUTO 2.18 K/mm3 (0.84-5.20); LYMPHOCYTES PERCENT AUTO 23 % (21-46); MONOCYTES ABSOLUTE AUTO 1.07 K/mm3 (0.16-1.47); MONOCYTES PERCENT AUTO 11 % (4-13); Mean Corpuscular HGB 29.5 pg (26.0-34.0); Mean Corpuscular HGB Conc 30.1 g/dL (31.5-36.5); Mean Corpuscular Volume 98 fL (80-100); Mean Platelet Volume 9.3 fL (9.1-12.4); NEUTROPHILS ABSOLUTE AUTO 6.05 K/mm3 (1.96-9.15); NEUTROPHILS PERCENT AUTO 63 % (41-73); Platelet Count 380 K/mm3 (150-400); RDW Coefficient Variation 13.5 % (11.7-14.2); RDW Standard Deviation 48.4 fL (35.1-46.3); Red Blood Cell Count 3.73 M/mm3 (3.80-5.20); White Blood Cell Count 9.54 K/mm3 (4.00-11.30)
[2020-03-22 06:54] LABS: Anion Gap 4 mmol/L (6-16); Blood Urea Nitrogen 13 mg/dL (8-24); Bun/Creatinine Ratio 23.6 (12.0-20.0); CO2, Blood 33 mmol/L (21-32); Calcium, Blood 8.5 mg/dL (8.5-10.1); Chloride, Blood 100 mmol/L (98-108); Creatinine, Blood 0.55 mg/dL (0.40-1.00); Glomerular Filtration Rate >60 (60-); Glucose, Blood 101 mg/dL (70-99); Magnesium, Blood 2.1 mg/dL (1.6-2.4); Potassium, Blood 4.4 mmol/L (3.5-5.5); Sodium, Blood 137 mmol/L (136-145)
--- NOTE | 2020-03-22 18:16 | NUR ---
SHE HAS HAD SOB, PAIN, AND ANXIETY TODAY. SHE HAS RECEIVED HER SCHEDULED NEBS AND 2 PRN NEBS. SHE HAS RECEIVED HER SCHEDULED METHADONE AND A PRN OXYCODONE DOSE. SHE RECEIVED HER SCHEDULED BUSPAR. SHE ALSO C/O HER BOTOOM ITCHING AND HURTING. SHE HAS HAD THE PINK CREAM APPLIED A FEW TIMES WITH ATTENDS CHANGES. SHE HAS A TINY BROKEN AREA ON HER BUTTOCK. O2 AT 3.5L. 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 SHE HAS POOR SHORT TERM MEMORY. BETWEEN THE SOB, CONFUSION AND ANXIETY, SHE HAS SEEMED DISTRESSED A LOT TODAY. SHE ALSO HAS A GOOD SENSE OF HUMOR AND CAN LAUGH AND SMILE. TELE NSR. VSS. WORKED WITH OT BUT REFUSED PT. SHE DANGLED ON THE SIDE OF THE BED AND DID EXERCISES. SHE HAS NOT STOOD TODAY.
--- NOTE | 2020-03-23 04:24 | NUR ---
SHIFT SUMMARY ADMITTED FOR COPD EXACERBATION. FULL CODE. DROPLET PRECAUTIONS FOR MRSA IN SPUTUM. PLAN IS FOR PLACEMENT UPON DC. TELEMETRY: TACHY @ 107 BPM. SHE IS VERY FORGETFUL BUT A&O X3-4. PHYSICAL THERAPY AND OT ARE WORKING WITH PT. IV ANTIBIOTICS ARE SCHEDULED. METHADONE SCHEDULED Q6 HRS. HX OF RECURRENT LUNG CA, AFIB. SHE LIVES W/DAUGHTER. NO NEW CONCERNS THIS SHIFT
[2020-03-23 13:10] LABS: BASOPHILS ABSOLUTE AUTO 0.05 K/mm3 (0.00-0.23); BASOPHILS PERCENT AUTO 1 % (0-2); EOSINOPHILS ABSOLUTE AUTO 0.12 K/mm3 (0.00-0.68); EOSINOPHILS PERCENT AUTO 1 % (0-6); Hematocrit 36.1 % (33.0-51.0); Hemoglobin 11.3 g/dL (11.5-16.0); IMMATURE GRAN ABSOLUTE AUTO 0.07 K/mm3 (0.00-0.10); IMMATURE GRAN PERCENT AUTO 1 % (0-1); LYMPHOCYTES ABSOLUTE AUTO 1.25 K/mm3 (0.84-5.20); LYMPHOCYTES PERCENT AUTO 12 % (21-46); MONOCYTES PERCENT AUTO 9 % (4-13); Mean Corpuscular HGB 30.4 pg (26.0-34.0); Mean Corpuscular HGB Conc 31.3 g/dL (31.5-36.5); Mean Corpuscular Volume 97 fL (80-100); Mean Platelet Volume 9.5 fL (9.1-12.4); NEUTROPHILS ABSOLUTE AUTO 8.04 K/mm3 (1.96-9.15); NEUTROPHILS PERCENT AUTO 77 % (41-73); Platelet Count 387 K/mm3 (150-400); RDW Coefficient Variation 13.8 % (11.7-14.2); RDW Standard Deviation 48.7 fL (35.1-46.3); Red Blood Cell Count 3.72 M/mm3 (3.80-5.20); White Blood Cell Count 10.43 K/mm3 (4.00-11.30)
[2020-03-23 13:41] LABS: Anion Gap 7 mmol/L (6-16); Blood Urea Nitrogen 13 mg/dL (8-24); Bun/Creatinine Ratio 26.6 (12.0-20.0); CO2, Blood 30 mmol/L (21-32); Calcium, Blood 8.8 mg/dL (8.5-10.1); Chloride, Blood 98 mmol/L (98-108); Creatinine, Blood 0.49 mg/dL (0.40-1.00); Glomerular Filtration Rate >60 (60-); Glucose, Blood 121 mg/dL (70-99); Potassium, Blood 4.3 mmol/L (3.5-5.5); Sodium, Blood 135 mmol/L (136-145)
[2020-03-23 13:54] LABS: Creatinine, Blood 0.51 mg/dL (0.40-1.00)
[2020-03-23 13:57] LABS: Vancomycin, Trough 21.6 ug/mL (5.0-10.0)
--- NOTE | 2020-03-23 18:27 | NUR ---
PATIENT IS FORGETFUL. SHE IS ALERT AND OIENTED TO HERSELF, FAMILY AND THE SITUATION. SHE IS ON 3.5L O2 VIA NC. ATTENDS IN PLACE, INCONTINENT OF URINE. THE PATIENT'S DAUGHTER WAS A THE BEDSIDE TODAY. THE PATIENT INITIALLY REFUSED PHYSICAL THERAPY BUT WORKED WITH PHYSICAL THERAPY AFTER THE DAUGHTER ARRIVED. PATIENT IS WHEEZY. BREATHING TREATMENTS NEEDED. C/O PAIN, TREATED PER EMAR. WILL CONTINUE TO MONITOR
--- NOTE | 2020-03-24 03:51 | NUR ---
SHIFT SUMMARY ADMITTED FOR COPD EXACERBATION. FULL CODE. CONTACT PRECAUTIONS FOR MRSA IN SPUTUM. PLAN IS FOR PLACEMENT WHEN STABLE FOR DISCHARGE. IV ANTIBIOTICS ARE SCHEDULED. METHADONE IS Q 6HRS. SHE IS ON HER BASELINE OF 3 1/2 LPM O2. SHE DID GET DYSPNEIC WHEN BEING CHANGED IN THE BED THIS SHIFT. ALTHOUGH SHE DID ADMIT TO ME THAT HER ANXIETY CAN MAKE HER THAT WAY.
[2020-03-24 05:19] LABS: BASOPHILS ABSOLUTE AUTO 0.04 K/mm3 (0.00-0.23); BASOPHILS PERCENT AUTO 0 % (0-2); EOSINOPHILS ABSOLUTE AUTO 0.07 K/mm3 (0.00-0.68); EOSINOPHILS PERCENT AUTO 1 % (0-6); Hematocrit 35.4 % (33.0-51.0); Hemoglobin 10.8 g/dL (11.5-16.0); IMMATURE GRAN ABSOLUTE AUTO 0.05 K/mm3 (0.00-0.10); IMMATURE GRAN PERCENT AUTO 1 % (0-1); LYMPHOCYTES ABSOLUTE AUTO 2.38 K/mm3 (0.84-5.20); LYMPHOCYTES PERCENT AUTO 27 % (21-46); MONOCYTES PERCENT AUTO 13 % (4-13); Mean Corpuscular HGB 29.8 pg (26.0-34.0); Mean Corpuscular HGB Conc 30.5 g/dL (31.5-36.5); Mean Corpuscular Volume 98 fL (80-100); Mean Platelet Volume 9.4 fL (9.1-12.4); NEUTROPHILS PERCENT AUTO 58 % (41-73); Platelet Count 395 K/mm3 (150-400); RDW Coefficient Variation 13.6 % (11.7-14.2); RDW Standard Deviation 48.7 fL (35.1-46.3); Red Blood Cell Count 3.62 M/mm3 (3.80-5.20); White Blood Cell Count 8.94 K/mm3 (4.00-11.30)
[2020-03-24 05:44] LABS: Anion Gap 3 mmol/L (6-16); Blood Urea Nitrogen 14 mg/dL (8-24); Bun/Creatinine Ratio 25.1 (12.0-20.0); CO2, Blood 34 mmol/L (21-32); Calcium, Blood 8.7 mg/dL (8.5-10.1); Chloride, Blood 99 mmol/L (98-108); Creatinine, Blood 0.56 mg/dL (0.40-1.00); Glomerular Filtration Rate >60 (60-); Glucose, Blood 101 mg/dL (70-99); Potassium, Blood 4.7 mmol/L (3.5-5.5); Sodium, Blood 136 mmol/L (136-145)
[2020-03-24 11:22] LABS: Vancomycin, Trough 17.2 ug/mL (5.0-10.0)
--- NOTE | 2020-03-24 19:27 | NUR ---
alert, orintated to self and location, call light in reach, very anxious, 3L via nc asked for it to be increased frequently, but each time 02 level was above 90 when checked so stayed with her but did not raise the 02 level, bsr shared with returning nurse and pt
--- NOTE | 2020-03-25 04:05 | NUR ---
SHIFT SUMMARY ADMITTED FOR COPD EXACERBATION. FULL CODE. PHYSICAL THERAPY/OT RECOMMEND SN[facility] [place]. PT HAS FREQUENT ANXIETY ATTACKS WHICH MAKE HER FEEL SOB. SHE ADMITS THIS TO ME. PRN OXYCODONE IS ALSO AVAILABLE IN [facility]. SHE IS FORGETFUL. TELEMETRY: TACHY @ 103. SHE IS ON Q 6 METHADONE. SHE DOES NOT GET OUT OF BED TO WALK, SHE IS COOPERATIVE WITH CARE. SHE IS INCONTINENT OF URINE. SHE IS ON 3 1/2 LPM O2 BASELINE. SHE IS ON DROPLET PRECAUTIONS FOR MRSA IN THE SPUTUM.
--- NOTE | 2020-03-25 19:35 | NUR ---
orintated to self and place, forgetful and anxious, pt worked very hard for over an hour to get pt to transfer from chair back to bed, call light in reach and able to use, saline locked, 3L via nc (home rate), bsr shared with noc nurse and pt, in isolation for mersa in sputum, no acute changes noted during shift, unwilling/unable to stand to transfer r/fear so much so she denied she had been in the chair
--- NOTE | 2020-03-26 04:29 | NUR ---
SHIFT SUMMARY PT ALERT AND ORIENT TO SELF. SHE HAS BEEN ANXIOUS C/O OF HARD TO BREATH. SALINE LOCKED. VSS. 3L N/C O2 SATURATING OVER 94%. PT HAS BEEN RECIEVING BREATHING TREATMENT AND USE OF INHALER. SHE ALSO C/O HARD TIME TO SLEEP, SPOKE WITH DR. MCCARTHY, 1 TIME ATIVAN GIVEN LAST NIGHT. PT HAS BEEN LESS ANXIOUS AFTER ATIVAN BUT HAS NOT BEEN ABLE TO SLEEP WELL. PT UNWILLING TO MOVE AROUND, ENC TO MOVE AND PROVIDE EDUC. CALL LIGHT WITHIN REACH.
--- NOTE | 2020-03-26 04:34 | NUR ---
SHIFT SUMMARY PT AOX3. VSS. CBG WAS LOW AT THE BEGINNING OF SHIFT BUT IT HAS IMPROVED AFTER MEAL. PT IS ON PARATINEAL DIALYSIS. SHE HAS SLEPT WELL T/O SHIFT. SHE C/O OF BACK PAIN. ENFORCE REPOSITIONING. SOME REDNESS ON COCCYX AREA WAS NOTED, APPLIED MOISTURIZER FOR RELIEF. NO ACUTE CHANGES T/O SHIFT. PT IS COMFORTABLE IN BED. CALL LIGHT WITHIN REACH.
[2020-03-26 14:53] LABS: Base Excess Venous 7.2 mmol/L; Bicarbonate Venous 29.5 mmol/L (24.0-30.0); PCO2 Venous 60.3 mmHg (38-42); PO2 Venous 166 mmHg (38-42); pH Blood Venous 7.35 (7.34-7.37)
--- NOTE | 2020-03-26 15:05 | NUR ---
PT RESPIRATIONS/PHYSICIAN NOTIFICATION PT EXPRESSED DYSPNEA WITH ELEVATED RESPIRATIONS AND INCREASED REQUESTS FOR BREATHING TREATMENTS. THIS RN CALLED DR. BELL AT APPROXIMATELY 1400 TO NOTIFY ABOUT PT'S STATUS AND DISCUSSION ABOUT CARE. THIS RN RECIEVED ORDERS FOR ONE TIME XANAX DOSE AND VBG. THIS RN NOTIFIED DR. BELL OF VBG RESULTS AT APPROXIMATELY [address] ORDERS TO PLACE PT ON BIPAP WITH CONTINUOUS PULSE OXIMETRY. THIS RN WILL CONTINUE TO MONITOR PT STATUS.
[2020-03-26 17:44] LABS: Creatinine, Blood 0.48 mg/dL (0.40-1.00); Vancomycin, Trough 17.9 ug/mL (5.0-10.0)
--- NOTE | 2020-03-26 18:21 | NUR ---
SHIFT SUMMARY PT IS AOX2-3, BUT FORGETFUL. PT MEDICATED FOR PAIN X4 THIS SHIFT. PT DENIES N/V. PT RECEIVED MULTIPLE BREATHING TREATMENTS THIS SHIFT AND C/O DYSPNEA. PT MEDICATED X1 FOR ANXIETY. PT TO BE PLACED ON BIPAP THIS MAEVE, BUT DID NOT TOLERATE IT FOR MORE THAN 2 MINUTES. RT STATED THEY WILL TRY AGAIN WITH BIPAP. PT RECIEVED A CHEST XRAY TODAY. PLAN IS TO CONTINUE WITH CURRENT TREATMENTS. PT WORKED WITH PT AND DID WELL. PT IS CURRENLTY ON 4 L O2 VIA NC. PT DID NOT HAVE VISITORS TODAY. PT IS IN BED, CALL LIGHT IN REACH, BED IN LOW POSITION.
--- NOTE | 2020-03-27 05:05 | NUR ---
SHIFT SUMMARY PT RESTS OFF AND ON T/O THE NIGHT. SHE HAS PERIODS OF INTERMITTENT ANXIETY AND PANIC ATTACKS WHEN SHE BECOMES SOB. IT TAKES PT SEVERAL MINUTES TO RECOVER, AND A LOT REASSURANCE FROM STAFF. SATS REMAINS WNL ON 3L O2, HOWEVER PT REQUESTS THE O2 BE INCREASED WITH EXERTION. O2 INCREASED TO 4.5 WITH TURNING, CHANGING AND REPOSITONING. LARGE INCONTINENT VOID, AND BM THIS SHIFT. PT HAS EPIGASTRIC, AND GAS PAIN AFTER EATING TURKEY SANDWHICH AND DRINKING MILK THIS EVENING, NOT A FRESH COMPLAINT FOR PT. MEDICATED PER EMAR WITH EFFECT. PT CONTINUES TO REFUSED BIPAP, AND ONLY WEARS O2. VITALS ARE STABLE. BED IN LOWEST POSITION, CALL LIGHT WITHIN REACH.
[2020-03-27 10:04] LABS: Base Excess Venous 11.8 mmol/L; Bicarbonate Venous 32.9 mmol/L (24.0-30.0); PCO2 Venous 69.9 mmHg (38-42); PO2 Venous 52.2 mmHg (38-42); pH Blood Venous 7.34 (7.34-7.37)
--- NOTE | 2020-03-27 12:35 | NUR ---
PT TRANSFER STATUS THIS RN TRANSFERRED PT TO [facility] AT APPROXIMATELY 1225. PT IS AOX4 AND EXHIBITS SOB. PT IS ON 3 L O2 VIA NC. PT TRANSPORTED BY BED TO U. THIS RN GAVE REPORT TO KAREY KEMP. PT MEDICATIONS AND BELONGINGS TRANSFERRED WITH PT.
--- NOTE | 2020-03-27 13:40 | NUR ---
PT ARRIVED IN THE UNIT WAS TRANSFERRED FROM MEDICAL FLOOR REPORT RECEIVED FROM NEFTALI Gracia RN, PT IS HERE FOR COPD EXA./MRSA SPUTUM INFECTION. PT IS ALERT AND ORIENTED X3 BUT IS VERY ANXIOUS, PT ON 3L OF O2 SATTING 93%, SHALLOW BREATHING, PT REFUSES TO WEAR BIPAP, PT STATED SHE COULDNT BREATHE CAUSE IT WAS RIB KNITTER THE ROOM, TEMP ADJUSTED PER PT'S REQUESTS, PT REQUESTED A BREATHING TX RIGHT AWAY, PT THEN STARTED TO CALM DOWN AND IS NOW EATING LUNCH. PT SITTING UP STRAIGHT IN THE BED. DENIES CHEST PAIN/PRESSURE. VITALS HRR ST 112, BP SYSTOLIC 130'S, AFEBRILE. WILL MONITOR PT UNTIL END OF SHIFT
--- NOTE | 2020-03-27 18:00 | NUR ---
PT SUMMARY: SEE PREVIOUS NOTES. TALKED TO THE GRANDSON ABOUT FAMILY'S WISHES TO JUST TAKE HOME THE PT TOMORROW WITH HOSPICE INVOLVED, TALKED TO DR BELL PALLIATIVE CARE CONSULTED. PT REMAINS ANXIOUS FOR THE REST OF THE SHIFT, FORGETFUL KEEPS ASKING THE SAME QUESTIONS OVER AND OVER, PT APOLOGIZES THEN AFTER REALIZING SHE FORGETS, STILL C/O SOB/ EVEN SATS ARE ABOVE 92% ON 4L, PT HAD THE BIPAP ON FOR ATLEAST 2 HRS AFTER PT WAS TRANSFERRED IN THE UNIT, KEPT ASKING TO SWITCH BIPAP MASK TO TO NASAL CANNULA. PT OFTEN ASK FOR BREATHING TX, INHALER AND PAIN MEDICINE EVEN ITS NOT TIME YET, PT EDUCATED ABOUT PANIC/ANXIETY COPING MECHANISM AND TAKING DEEP BREATHS. PT C/O BEING HOT THEN COLD REQUESTED MULTIPLE TIMES TO TURN THE HEAT DOWN IN THE ROOM. INCONTINENT OF BOWEL AND BLADDER NOT TOLERATING ROLLING AND TURNING IN BED ESPECIALLY WHEN LAYING FLAT AND PANICS A LOT. PT HAS ARTHRITIS AND CARPAL TUNNEL SYNDROME IN BOTH HANDS BUT IS ABLE TO FEED HERSELF WITH LEFT HAND. PT IS CURRENTLY RECEIVING BREATHING TX AT THIS TIME, CALL LIGHTS IN REACH WILL MONITOR UNTIL END OF SHIFT
[2020-03-28 04:15] LABS: BASOPHILS ABSOLUTE AUTO 0.05 K/mm3 (0.00-0.23); BASOPHILS PERCENT AUTO 1 % (0-2); EOSINOPHILS ABSOLUTE AUTO 0.07 K/mm3 (0.00-0.68); EOSINOPHILS PERCENT AUTO 1 % (0-6); Hematocrit 34.3 % (33.0-51.0); Hemoglobin 10.6 g/dL (11.5-16.0); IMMATURE GRAN ABSOLUTE AUTO 0.06 K/mm3 (0.00-0.10); IMMATURE GRAN PERCENT AUTO 1 % (0-1); LYMPHOCYTES ABSOLUTE AUTO 2.26 K/mm3 (0.84-5.20); LYMPHOCYTES PERCENT AUTO 21 % (21-46); MONOCYTES ABSOLUTE AUTO 1.56 K/mm3 (0.16-1.47); MONOCYTES PERCENT AUTO 14 % (4-13); Mean Corpuscular HGB 30.3 pg (26.0-34.0); Mean Corpuscular HGB Conc 30.9 g/dL (31.5-36.5); Mean Corpuscular Volume 98 fL (80-100); Mean Platelet Volume 9.5 fL (9.1-12.4); NEUTROPHILS ABSOLUTE AUTO 6.97 K/mm3 (1.96-9.15); NEUTROPHILS PERCENT AUTO 64 % (41-73); Platelet Count 389 K/mm3 (150-400); RDW Coefficient Variation 13.8 % (11.7-14.2); White Blood Cell Count 10.97 K/mm3 (4.00-11.30)
[2020-03-28 04:32] LABS: Albumin, Blood 2.6 g/dL (3.4-5.0); Anion Gap 2 mmol/L (6-16); Blood Urea Nitrogen 20 mg/dL (8-24); Bun/Creatinine Ratio 39.1 (12.0-20.0); CO2, Blood 37 mmol/L (21-32); Calcium, Blood 9.3 mg/dL (8.5-10.1); Chloride, Blood 94 mmol/L (98-108); Creatinine, Blood 0.51 mg/dL (0.40-1.00); Glomerular Filtration Rate >60 (60-); Glucose, Blood 93 mg/dL (70-99); Phosphorus, Blood 3.9 mg/dL (2.5-4.9); Potassium, Blood 4.4 mmol/L (3.5-5.5); Sodium, Blood 133 mmol/L (136-145)
--- NOTE | 2020-03-28 04:54 | NUR ---
SHIFT SUMMARY PT WAS VERY ANXIOUS T/O THE NIGHT WITH NO SLEEP. PT WOULD STATE BEING SOB AND REQUEST A BREATHING TREATMENT. MINUTES AFTER BREATHING TREATMENT COMPLETE PT WOULD STATE BEING SOB AND REQUEST ANOTHER BREATHING TREATMENT. PT REFUSED TO WEAR HER BIPAP STATING SHE WAS TOO ANXIOUS TO WEAR IT. O2 SATS >92% T/O THE SHIFT. WHEN PT WOULD BECOME ANXIOUS AND STATE SOB, O2 SATS WERE >92%. PT ENCOURAGED TO USE BIPAP AND EDUCATED ON BIPAP, CONTINUED USE OF MEDICATION AND CONDTION. PT REQUESTED ASSISTANCE FOR MANY TASKS SHE WAS ABLE TO PERFORM INDEPENDENTY, WHEN PT ENCOURAGED TO PERFORM TASKS INDEPENDENTLY SHE WAS ABLE TO DO SO. PT WAS GIVEN LORAZEPAM FOR ANXIETY TO HELP WITH BIPAP MASK ANXIETY. THIS DID NOT HELP. PT SAT UP IN BED T/O THE NIGHT. VITALS WERE STABLE, HE 80-100'S, BP 121-160 SYSTOLIC. HYPERTENSIVE BP TAKEN WHEN PT WAS HAVING AN INCREASE IN ANXIETY. PT AWAKE IN ROOM WATCHING TV.
--- NOTE | 2020-03-28 11:00 | NUR ---
70 year old female admitted for COPD Exacerbation. Pt medical history and comorbidities include: COPD, Lung Cancer with Recurrence, Degenerative Disk Disease, Chronic Pain Syndrome, Chronic Respiratory Failure, Narcotic Dependence, R Loer Lobectomy, Ovarian Cancer, and Cervical Cancer. Pt resting in bed upon arrival. Pt is A&OX3. She is unable to verbalize current year. Pt reports 3/10 pain and moderate dyspnea. Pt appears SOB as evidenced by work of breathing and ability to speak only 2 to 3 word sentences. Pt denies nausea at this time. Pt does report mild anxiety. Engaged in therapeutic discussion regarding goals of care. Pt reports adequate support with her daughter and grandchildren. Pt reports before hospital stay she was able to enjoy getting out of the house and grocery shop with her family. Pt reports she was ably to ambulate without any issues. As conversation continues, Pt appears to be confused and forgetful. Discussed hospice being an option and provided gentle eduction on hospice philosophy. Pt reports being in agreement but it is unclear of how much she understands. Pt's SOB appears to be worsening and this RN ended visit. Spoke with Bedside RN Everett and discussed case. Everett reports speaking with family and they are in agreement with hospice. Shekhar states family reports Pt has not been able to ambulate independently in quite some time and does not get out the house. Pt requires 2 person assistance with transfers and ambulation. Pt requires assistance with bathing, dressing, and is incontinent of bowel and bladder. Pt's appetite is fair, eating approximately 50% of her meals. Spoke with Dr Betancur and discussed case. Dr Betancur reports having conversation with Pt and family yesterday regarding considering hospice. Pt and family are in agreement with hospice. Called and spoke with Pt's daughter Jaymie. Engaged in therapeutic discussion regarding goals of care. Jaymie confirms goals for hospice. Educated on hospice philosophy with V/U made by Jaymie. Discussed hospice agencies to choose from with Jaymie requresting agency that is available the soonest. Discussed Pt's current code status. Educated on life sustaining measures including risk factors and implications. Jaymie states her mother probably would not CPR or intubation in her current health status. She is requesting for this RN to discuss further with Pt. Jaymie expresses appreciation of conversation and reports no other concerns at this time. F/U with Pt regarding code status. Provided gentle education on life sustaining treatments with Pt stating she will discuss further with her family. Spoke with Caremanager Omar and relayed family's request of hospice agency that is available the soonest. PPS 40% ADLs 5/6 Palliative Care will remain available.
--- NOTE | 2020-03-28 19:24 | NUR ---
PT SUMMARY: PALLIATIVE CARE NURSE HAD DISCUSSION WITH FAMILY AND PT ABOUT TAKING PT HOME WITH HOPSICE, PT AGREEABLE WITH THE PLAN. PT STILL REFUSES TO WEAR BIPAP CAN ONLY TOLERATE FOR 3O MINS, OFTEN GETS PANIC ATTACKS STATING SHE COULDNT BREATHE EVEN SATS WERE RANGING 92-94%. CALLS OFTEN FOR BREATHING TX AND INHALERS. POOR APPETITE ATE 30-40% OF MEALS TODAY. REFUSES TO GET REPOSITIONED IN BED. INCONTINENT OF BOTH BOWEL AND BLADDER. PLAN TO DC PT TO HOME TOMORROW WITH HOSPICE. PT STAYED IN BED ALL SHIFT, CALL LIGHTS IN REACH REPORT GIVEN TO NOC SHIFT RN
--- NOTE | 2020-03-29 04:45 | NUR ---
SHIFT SUMMARY PT ARRIVED BACK TO HER ROOM AROUND 1949 FROM PE THROMBECTOMY. VITALS REMAINED STABLE AND R FEMORAL ACCESS SITE REMAINED UNCHANGED T/O SHIFT. THE SITE HAD VERY LITTLE DRAINAGE, WAS NOT TENDER, NO REDNESS, NO SWELLING, AND NO FIRMNESS. PT STATED SHE DID NOT HAVE ANY PAIN AT THE SITE. PT WAS ON 2.5 LPM VIA NC T/O THE SHIFT WITH 02 SATS >90%. PT DENIED ANY SOB. BP VARIED FROM 153 TO 102 SYSTOLIC. HR TACHY 100-110'S. PT DENIED ANY CP. PAIN IN HIPS AND L LEG WAS CONTROLED WITH PRN MEDICATIONS. PT STATED FEELING MUCH BETTER THAN PREVIOUS SHIFTS. PT HAD A RESTFUL, UNEVENTFUL NIGHT RECOVERING FROM THE PROCEDURE.
--- NOTE | 2020-03-29 05:11 | NUR ---
SHIFT SUMMARY PT WAS VERY ANXIOUS T/O SHIFT, SHE WOULD BECOME PANICKED AND STATE SHE COULD NOT BREATH. PT WAS COACHED ON SLOW DEEP BREATHING AND WAYS TO CALM DOWN. O2 SATS REMAINED HIGH 90'S T/O EVENTS. PT IS ON 4 LPM VIA NC AND 02 SATS REMAINED >95% T/O THE SHIFT. PT REFUSED BIPAP AND WOULD ASK FOR BREATHING TREATMENTS AND INHALER CONCONTINOUSLY. WHEN BREATHING TREATEMTNS ENDED SHE WOULD ASK FOR ANOTHER ONE. PT EDUCATED ABOUT BIPAP AND SLOW DEEP BREATHING. PT STATED SHE WAS AWEAR THAT THE SOB WITH THE PANIC ATTACKS WAS "ALL IN MY HEAD" AND SHE WAS NOT STARVING FOR O2. VITALS REMAINED STABLE T/O SHIFT. PT REFUSED TO BE IN ANY POSITION OTHER THAN SITTING UP IN BED. REPOSITIONING ENCOURAGED DUE TO RED COCCYX. PT DID NOT COOPERATE WELL WITH ARIELLE CARE AND LINEN CHANGE SHE WOULD STATE SHE WAS HAVING A PANNIC ATTACK. PT MOSTLY NOT COOPERATIVE WITH CARE.
--- NOTE | 2020-03-29 09:47 | NUR ---
Spoke with Bedside RN Caroline, discussed case and concerns. Pt's dyspnea has increased along with increased anxiety. Conversation with Pt and family regarding goals of care may be beneficial. Pt resting in bed upon arrival. vault service mechanic Sima at bedside. Engaged in therapeutic convesation with Pt regarding options for goals of care. Discussed comfort care as an option. Educated on comfort care philosophy. Pt is in agreement with comfort care but would like this RN to speak with her daughter Jaymie as well. Discussed code status with Pt. Pt would like to be DNR. Called and spoke with Pt's daughter Jaymie. Provided update and relayed conversation that took place with Pt and staff. Educated on comfort care philosophy with V/U made by Jaymie. Jaymie is also agreeable to start comfort measures only and for code status to be changed to DNR. Jaymie expresses appreciation of call and reports no other concerns at this time. Spoke with Dr Betancur, discussed case including Pt and family's wishes. Dr Betancur will place comfort care orders. Palliative Care will remain available for symptom management and supportive visits.
--- NOTE | 2020-03-29 16:00 | NUR ---
REPORT GIVEN TO ROBSON EDEN ON MEDICAL.
--- NOTE | 2020-03-29 18:05 | NUR ---
RECEIVED PATIENT FROM U ABOUT 1600. BRUISING T/O. EXCORIATED GROIN. UPON ARRIVAL DENIES ANY NEEDS. DOES NOT C/O; PAIN, DISCOMFORT OR ANXIETY. SPEAKS IN COMPLETE SENTENCES ON 2 LPM VIA N/C. S.L RT HAND PATENT. DURING CHANGE OF BRIEF PATIENT GETS ANXIOUS. OXYGEN TURNED UP TO 5 LPM, ATIVAN GIVEN AND R.T. CALLED FOR TREATMENT. TOLERATED BRIEF CHANGE OK IT WAS DONE VERY QUICKLY. POSSIBLE D'C TOMORROW. WCTM
--- NOTE | 2020-03-30 06:42 | NUR ---
SHIFT SUMMARY COMFORT CARE. REPORTS CHRONIC BACK PAIN, STATES SCHEDULED METHADONE HELPS c PAIN. INCONTINENT OF URINE, ATTENDS CHANGED PRN. HAS RED/EXCORIATED GROIN, CLEANSED & POWDER APPLIED. PT REPORTED "I CAN'T BREATH" "I NEED AIR" SPO2 CHECK & SATS @99% ON 5L c NC, HAS LABOURED BREATHING, HOB ELEVATED, MEDICATED c ATIVAN FOR ANXIETY, RECIEVED BREATHING TX & PT ABLE TO REST COMFORTABLY. TAKES MEDS WHOLE c WATER. PLAN TO DC HOME ON HOSPICE. CALL LIGHT IN REACH.
--- NOTE | 2020-03-30 14:02 | NUR ---
Pt resting in bed with her eyes closed upon arrival. Pt's breathing appears moderately labored. Pt awakes to gentle voice and touches but struggles to keep her eyes open. Pt reports feeling more comfortable. Spoke with Bedside RN Kelly and discussed case. Kelly recently offered comfort medications. Spoke with [facility] and discussed case. Plan for Hospice to admit onto services tomorrow. Palliative Care will remain available.
--- NOTE | 2020-03-30 14:31 | NUR ---
PT SITTING UP IN BED HEAD DOWN ON THE CORNER OF THE TABLE BREATHING RAPIDLY AND SHALLOW ACCESSORY MUSCLE USE NOTED MEDICATED WITH 20MG ROXANOL FOR AIR HUNGER. ADJUSTED THE PT TO SITTING UPRIGHT, PILLOWS ADJUSTED.
--- NOTE | 2020-03-30 18:15 | NUR ---
SHIFT SUMMARY PT ON COMFORT CARE. MEDICATED FOR PAIN AND AIR HUNGER PER EMAR. BRAIN PLACED THIS SHIFT PER HOSPICE REQUEST, PT TOLERATED WELL. IV PATENT AND SALINE LOCKED. PT EATING DINNER AT THIS TIME. BED IN LOW POSITON, CALL LIGHT WITHIN REACH. AXO X1-2. ORAL CARE AC.
--- NOTE | 2020-03-30 18:25 | NUR ---
Spiritual care note: Mrs. De León was alone in room, had difficulty staying awake, and appears to be comfortable. Per chart, she is non-zoroastrian. Held her hand for a while providing presence of love. I will remain available to pt and family.
--- NOTE | 2020-03-31 08:55 | NUR ---
Comfort Care Visit Pt resting in bed with her eyes opened and appears to be sleeping. Mildly dyspnea noted. Pt awakes to gentle verbal stimuli. Pt reports feeling better and is agreeable with going home today. Spoke with Bedside KAREY Hooks and discussed case. Pt scheduled to D/C home with hospice this AM. Palliative Care will remain available.
[2020-03-31] MEDS ORDERED: ATROPINE SULFATE5 ML SL (10:19)
[2020-03-31] MEDS ORDERED: MORP20L SL (10:20)
[2020-03-31] MEDS ORDERED: Ativan1 MG PO (10:20)
[2020-03-31] MEDS ORDERED: TRANSDERM-SCOP1 EAC4 TD (10:21)
--- NOTE | 2020-03-31 10:30 | NUR ---
PT ON COMFORT CARE. TREATED FOR PAIN AND AIR HUNGER WITH ROXONAL PER EMAR. ALSO TREATED FOR ANXIETY PER PT REQUEST. PT IS ON 5 L/MIN NC, SOB AND USE OF ACCESORY MUSCLES NOTED. IV REMOVED DUE TO PT BEING DISCHARGED THIS AM. DE [place] PAZ PATENT AND DRAINING. DE [place] PAZ WILL BE LEFT IN @ DISCHARGE PER HOSPICE REQUEST. PT A&OX3, ANSWERING QUESTIONS APPROPRIATELY. ABLE TO SWALLOW PILLS WHOLE, 2 AT A TIME WITH FLUIDS. REFUSED STOOL SOFTNERS THIS AM.
--- NOTE | 2020-03-31 11:47 | NUR ---
PT DISCHARGED AT APPROX 1135 VIA AMBULANCE. DE LA PAZ IN PLACE AT TIME OF DC, PATENT AND DRAINING. DE LA PAZ BAG WAS EMPTIED PRIOR TO DC. UPDATED PT DAUGHTER PRIOR TO DISCHARGE. INFORMED HER OF DISCHARGE TIME, ENSURED THAT PT HOME MEDICATIONS WERE IN PT BAG, WELL HER DISCHARGE PACKET WITH INSTRUCTIONS AND ANY OTHER BELONGINGS. IV REMOVED AND SITE WNL.
== END 2020-03-31 11:36 | disposition hospice, home (50) | DRG 896 ==
LOC: ER 21:23 → SURS 21:24 → ERHOLD 21:24 → SURS 03-18 04:08 → MEDS 03-21 13:28 → SURS 03-21 13:28 → MEDS 03-21 21:35 → PCU 03-27 12:14 → MEDS 03-29 16:16
PROVIDERS: Internal Medicine; Pharmacist; Student in an Organized Health Care Education/Training Program; ADMIT Family Medicine
PROC: 5A09357 Assistance with Respiratory Ventilation, Less than 24 Consecutive Hours, Continuous Positive Airway Pressure (ICD-10-PCS; principal; 2020-03-21)
DX: F11.188 Opioid abuse with other opioid-induced disorder (principal); J96.21 Acute and chronic respiratory failure with hypoxia; J96.22 Acute and chronic respiratory failure with hypercapnia; G92 Toxic encephalopathy; J44.1 Chronic obstructive pulmonary disease with (acute) exacerbation; E87.3 Alkalosis; C34.91 Malignant neoplasm of unspecified part of right bronchus or lung; Z89.422 Acquired absence of other left toe(s); Z87.891 Personal history of nicotine dependence; Z90.2 Acquired absence of lung [part of]; E87.6 Hypokalemia; G89.4 Chronic pain syndrome; F32.9 Major depressive disorder, single episode, unspecified; M79.2 Neuralgia and neuritis, unspecified; F41.9 Anxiety disorder, unspecified; I48.0 Paroxysmal atrial fibrillation; Z51.5 Encounter for palliative care; B95.62 Methicillin resistant Staphylococcus aureus infection as the cause of diseases classified elsewhere; B96.89 Other specified bacterial agents as the cause of diseases classified elsewhere
CPT/HCPCS: 0241U; 36415; 51701; 71045; 71046; 80047; 80048; 80053; 80069; 80202; 81001; 82565; 82803; 83735; 83880; 84145; 84443; 84484; 85014; 85025; 87070; 87077; 87147; 87185; 87186; 87205; 90471; 94640; 94644; 94660; 94760; 94762; 96365; 96366; 96372; 96375; 97110; 97162; 97166; 97530; 97535; 99285-25; A9270; G0378; J0696; J1650; J2060; J3370; J3480; J7050; J7120; J7512; Q2038